=== PATIENT | female | born 1960 | race Caucasian/White ===

== ENCOUNTER 2024-03-13 19:20 | Emergency (ER) | payer OTHER, SELFPAY ==
[2024-03-13 19:30] VITALS: BP 184/105
[2024-03-13 20:07] LABS: ALT (SGPT) 21 U/L (0-35); AST (SGOT) 32 U/L (14-36); Alkaline Phosphatase 61 U/L (38-126); Blood Urea Nitrogen 15 mg/dl (7-17); Calcium 9.8 mg/dl (8.4-10.2); Carbon Dioxide 26 mmol/L (22-30); Chloride 102 mmol/L (98-107); Glucose 84 mg/dl (70-99); Potassium 4.3 mmol/L (3.5-5.1); Sodium 140 mmol/L (135-145); Total Bilirubin 0.5 mg/dl (0.2-1.3); Total Protein 7.5 g/dl (6.3-8.2); eGFR > 60.00
[2024-03-13 20:10] LABS: % Basophils 0.4 % (0-2); % Eosinophils 1.6 % (0-6); % Immature Granulocytes 0.3 % (0-0.5); % Lymphocytes 29.6 % (20.5-51.1); % Monocytes 8.6 % (1.7-9.3); % Neutrophils 59.5 % (42.2-75.2); Absolute Eosinophils 0.1 10^3/uL (0-0.7); Absolute Monocytes 0.6 10^3/uL (0.1-0.6); Absolute Neutrophils 4.1 10^3/uL (1.4-6.5); Hematocrit 38.7 % (37.0-47.0); Hemoglobin 13.9 g/dL (12.0-16.0); Mean Corp Hgb Conc. 35.9 g/dL (33.0-37.0); Mean Corpuscular Hgb 31.5 pg (27.0-31.0); Mean Corpuscular Volume 87.8 fL (81.0-99.0); Mean Platelet Volume 10.1 fL (7.4-10.4); Nucleated Red Blood Cells % 0 %; Platelet Count 213 10^3/uL (130-400); Red Blood Cell Count 4.41 10^6/uL (4.20-5.40); Red Cell Dist. Width 11.7 % (11.5-14.5); White Blood Cell Count 6.9 10^3/uL (4.8-10.8)
[2024-03-13 20:16] LABS: Troponin I < 0.012 ng/ml
[2024-03-13 20:51] VITALS: BMI 30.3
[2024-03-13 20:57] VITALS: BP 127/86
[2024-03-13 21:00] VITALS: BP 167/86
--- NOTE | 2024-03-13 21:16 | ED.GENMED ---
History of Present Illness
General
Chief Complaint: Blood Pressure Problem
Source: patient
Time Seen by Provider: 03/13/24 20:52
History of Present Illness
History of Present Illness:
63-year-old female presents the emergency room for evaluation of headache and hypertension. Patient has felt unlike herself for the past couple days. She has had a bit of a headache no focal neurologic deficits. No weakness numbness or tingling.
She does not have a history of hypertension. She does not take any [id number] or prescription medications. Patient does have family history of heart disease and hypertension. She denies any unusual weight gain or weight loss. She denies
following any fad diets or unusual diets.
Phy Exam
Physical Exam
Physical Exam:
General: Awake, Alert, Oriented X3. No acute distress.
Vitals: unremarkable
Head: Atraumatic
Eyes: Pupils equal, EOMI
Throat: Airway intact, no exudates
Neck: Trachea midline
Lungs: Clear and equal b/l
Heart: Regular rate, no murmurs
Abd: Soft, Nontender, No pulsatile mass
Neuro: Cranial nerves intact, muscle strength equal bilaterally
Skin: Warm, dry, no rash
Extremities: pulses equal b/l, no edema
Course
Orders/Labs/Results
Orders:
Orders
03/13/24 19:21
EKG [Electrocardiogram (*1)] Urgent
Reason for Study: Abnormal EKG
03/13/24 19:22
EKG- Treatment ONCE
03/13/24 19:37
Complete Blood Count/With Diff Urgent
Comprehensive Metabolic Panel Urgent
Troponin I Urgent
03/13/24 21:29
Urinalysis Urgent
Date Specimen was Collected: 03/13/24
Time Specimen was Collected: 21:19
Urine Microscopic Urgent
Date Specimen was Collected: 03/13/24
Time Specimen was Collected: 21:19
Abnormal Lab Results
03/13/24 03/13/24
19:37 21:29
MCH 31.5 H pg
(27.0-31.0)
Ur Leukocyte Esterase 1+ A
(Negative)
Urine WBC 11-15 A /HPF
(0-5)
Urine Bacteria Few A
(Negative)
03/13/24 19:37
03/13/24 19:37
Vital Signs
Initial and Last Documented VS:
Initial Vital Signs
Temp Pulse Resp BP Pulse Ox
98.4 F 86 16 184/105 98
03/13/24 19:30 03/13/24 19:30 03/13/24 19:30 03/13/24 19:30 03/13/24 19:30
Last Documented Vital Signs
Temp Pulse Resp BP Pulse Ox
98.0 F 77 17 118/80 93
03/13/24 20:53 03/13/24 22:15 03/13/24 22:15 03/13/24 22:00 03/13/24 22:15
MDM/Problems Addressed
Differential Diagnosis Includes:
Uncontrolled hypertension
MDM/Problems Addressed:
Patient presents with elevated blood pressure. She had a mild headache but is otherwise asymptomatic. Labs show no evidence for endorgan dysfunction. She does not have chest pain, evidence of heart failure. Started low-dose lisinopril and have
her follow-up primary care
*Pulse Oximetry
Patient hypoxic: no
*EKG
Interpreted by ED Provider?: Yes
Interpretation: normal
Heart Rate: 85
Rate: normal
Rhythm: sinus
[place]: normal axis
Interval: normal interval
QRS Pattern: normal QRS
Ischemia: no ischemia
*Critical Care Note
Total Time (30-74mins, 75-104mins- exclusive of procedures): Not Applicable
ED Attending Note
-
Portions of this chart may have been created with voice recognition software.� Occasional wrong word or��sound alike� substitutions may have occurred due to the inherent limitations of voice recognition software.
Discharge Plan
Departure
Patient Disposition: Home (Routine Discharge)
Date of Disposition: 03/13/24
Time of Disposition: 21:57
Patient with high blood pressure during this ER visit?: Yes
Condition: Good
Discharge Problem:
Hypertension, uncontrolled
Instructions: High Blood Pressure (DC)
Prescriptions:
New
lisinopril 10 mg tablet
10 mg PO DAILY Qty: 30 0RF
Activity Restrictions/Additional Instructions:
Please follow up with your primary care provider to monitor you blood pressure and response to therapy.
Interventions
Interventions:
*Risk Screen - Suicide Last Done: 03/13/24 20:58
*General Assessment Last Done: 03/13/24 20:58
*Neglect/Abuse Screening Last Done: 03/13/24 20:58
*ED COVID-19 Vaccine History Last Done: 03/13/24 20:57
*Nursing Disposition Last Done: 03/13/24 22:37
ED- Cardiac Assessment Last Done: 03/13/24 20:58
ED- Neurological Assessment Last Done: 03/13/24 20:58
ED- Pulmonary Assessment Last Done: 03/13/24 20:58
Discharge Date and Time
Discharge Date/Time: 03/13/24 22:40
Print Language: MACEDONIAN
[2024-03-13 21:35] VITALS: BP 131/84
[2024-03-13 21:40] LABS: Urine Albumin Negative (Neg - Trace); Urine Bilirubin Negative (Negative); Urine Character Clear (Clear); Urine Color Yellow; Urine Glucose Negative (Negative); Urine Ketone Negative (Negative); Urine Leukocyte 1+ (Negative); Urine Nitrite Negative (Negative); Urine Occult Blood Negative (Negative); Urine Urobilinogen Negative (Neg - 1+)
[2024-03-13 21:52] LABS: Urine Red Blood Cell 0-2 /HPF (0-2)
[2024-03-13 21:53] LABS: Urine Bacteria Few (Negative)
[2024-03-13 22:00] VITALS: BP 118/80
== END 2024-03-13 22:40 | disposition home or self-care (01) ==
LOC: EMR 19:20
PROVIDERS: EMERGENCY PHYSICIAN Emergency Medicine; FAMILY PHYSICIAN Nurse Practitioner Family
DX: I10 Essential (primary) hypertension (principal)
CPT/HCPCS: 99284; 80053; 81003; 81015; 84484; 85025; 93005